=== PATIENT | female | born 1955 | race Caucasian/White ===

== ENCOUNTER 2018-03-22 07:30 | Inpatient (IN) ==
[~2018-03-22 07:30] MED LIST: ACETAMINOPHEN 500 MG TABLET PO ONE; FAMOTIDINE PB 20 MG/50 ML BAG IV ONE; HYDROCORTISONE SOD SUCC 100mg/2ml INJECTION IVP ONE; LIDOCAINE 1% (10mg/ml) 2mL INJ PF SDV ID ONE; MELOXICAM 15 MG TABLET PO ONE; METOCLOPRAMIDE 10mg/2ml INJECTION IVP ONE; ONDANSETRON 4 MG/2 ML INJECTION IVP ONE; TRANEXAMIC ACID 1,000 MG in NS 100 ML IV ONE
[2018-03-22] MEDS ORDERED: EPINEPHrine PF 0.25 MG, BUPIVACAINE 0.25% PF 30 ML, KETOROLAC INJ 60 MG in NS 30 ML OPSITE ONE (08:00)
--- OUTSIDE RECORDS SUMMARY | 2018-03-22 09:44 | External Medical Summary | Referral Summary ---
:1955 Author Organization [facility] Address [address] [place] [address] Care Team Providers Name Role Phone Joaquin Vásquez Primary Care Physician Erwin Buchanan Primary Care Physician Encounter VC Date(s): 03/06/18 - 03/06/18 [facility] [address] [place] [address]- [place] Discharge Disposition: 01-Home or Self Care Attending Physician: Ren Noel MD Admitting Physician: Ren Noel MD Problem List Condition Effective Dates Status Health Status Informant Acquired hallux rigidus of right Active foot(Confirmed) Acute sinusitis(Confirmed) Active Allergic rhinitis/Hayfever(Confirmed) Active Arthritis of ankle joint(Confirmed) Active Arthritis(Confirmed) Active Bronchitis(Confirmed) Active Chronic rhinitis (disorder)(Confirmed) Active Chronic sinusitis(Confirmed) Active Depression(Confirmed) Active Dermatofibroma(Confirmed) Active Rotator cuff tear - right, Active infraspinatus(Confirmed) Dyslipidemia(Confirmed) Active Onychodystrophy(Confirmed) Active Lower extremity edema(Confirmed) Active Essential hypertension Active (disorder)(Confirmed) Right foot pain(Confirmed) Active Herpes zoster(Confirmed) Active Hyperlipidemia(Confirmed) Active Inflammatory Active polyarthropathy(Confirmed) Insomnia(Confirmed) Active Primary osteoarthritis of left Active knee(Confirmed) Hot flashes(Confirmed) Active Obesity(Confirmed) Active patient Osteoarthritis - lower leg(Confirmed) Active Postherpetic neuralgia(Confirmed) Active Snoring(Confirmed) Active Urinary tract infection(Confirmed) Active Chickenpox(Confirmed) Active Allergies, Adverse Reactions, Alerts Substance Reaction Severity Status Enbrel Mild Active Medications acyclovir 800 mg oral tablet See Instructions, TAKE ONE TABLET BY MOUTH FIVE TIMES DAILY FOR 7 DAYS, # 35 tabs, eRx: [facility] #[id number], TAKE ONE TABLET BY MOUTH FIVE TIMES DAILY FOR 7 DAYS Start Date: 04/20/15 Status: OrderedAllegra See Instructions, as needed for allergy symptoms, Oral, 0 Refill(s) Start Date: 01/12/17 Status: Orderedatenolol 100 mg oral tablet 100 mg 1 tabs, Oral, Daily, # 90 tabs, 3 Refill(s), Pharmacy: [facility] # [id number], 1 tabs Oral Daily Start Date: 01/12/17 Status: OrderedClaritin See Instructions, as needed for allergy symptoms, mg, 0 Refill(s) Start Date: 01/12/17 Status: OrderedEstrace Vaginal 0.1 mg/g vaginal cream Vaginal, 3x/Wk, 0 Refill(s) Start Date: 06/15/15 Status: Orderedfenofibrate 160 mg oral tablet 160 mg 1 tabs, Oral, Daily, # 90 tabs, 3 Refill(s), Pharmacy: [facility] # [id number], 1 tabs Oral Daily Start Date: 09/08/16 Status: Orderedfolic acid 1 mg oral tablet 1 mg 1 tabs, Oral, Daily, 0 Refill(s) Start Date: 01/12/17 Status: OrderedhydroCHLOROthiazide 25 mg oral tablet 25 mg 1 tabs, Oral, Daily, # 90 tabs, 3 Refill(s), Pharmacy: [facility] # [id number], 1 tabs Oral Daily,x90 days Start Date: 02/19/18 Stop Date: 02/14/19 Status: Orderednabumetone 750 mg oral tablet 750 mg 1 tabs, Oral, BID, # 60 tabs, 0 Refill(s) Start Date: 08/17/16 Status: OrderedNorco 10 mg-325 mg oral tablet 1 tabs, Oral, QID, 0 Refill(s) Start Date: 06/15/15 Status: OrderedpredniSONE 10 mg oral tablet 10 mg 1 tabs, Oral, Daily, # 30 tabs, 0 Refill(s), other reason (Rx) Start Date: 01/12/17 Status: OrderedsulfaSALAzine 500 mg oral tablet 2 tabs, Oral, BID, # 120 tabs, 0 Refill(s) Start Date: 10/28/14 Status: OrderedTylenol Extra Strength 650 mg, Oral, q8hr, 0 Refill(s) Start Date: 04/30/14 Status: OrderedVascepa 1 g oral capsule 2 g 2 caps, Oral, BID, # 360 caps, 3 Refill(s), Pharmacy: [facility] # [id number], 2 caps Oral BID Start Date: 09/08/16 Status: Orderedvenlafaxine 150 mg oral capsule, extended release 150 mg 1 caps, Oral, Daily, # 90 caps, 3 Refill(s), Pharmacy: [facility] # [id number], 1 caps Oral Daily Start Date: 01/12/17 Status: Orderedzolpidem 5 mg oral tablet 7.5 mg 1.5 tabs, Oral, Bedtime (once a day), as needed for sleep, MUST LAST 30 DAYS - Horacio Rosen, # 45 Each, 0 Refill(s) Start Date: 08/18/17 Status: OrderedZyrTEC 5 mg, Daily, 0 Refill(s) Start Date: 10/28/14 Status: Ordered Immunizations Given and Recorded Vaccine Date Status Refusal Reason hepatitis A-hepatitis B vaccine1 08/14/17 Recorded influenza virus vaccine, inactivated2 09/04/15 Recorded influenza virus vaccine, inactivated 07/15/14 Recorded pneumococcal 23-polyvalent vaccine3 09/04/15 Recorded pneumococcal 13-valent conjugate vaccine 08/12/14 Recorded influenza virus vaccine, live 10/02/13 Given influenza virus vaccine, live 10/02/12 Given tetanus/diphth/pertuss (Tdap) adult/adol 08/01/12 Recorded tetanus/diphth/pertuss (Tdap) adult/adol 10/06/10 Recorded 1Location History: [facility]: [id number] History: [id number] History: Jessika Procedures Procedure Date Related Diagnosis Body Site Status Open reduction and internal fixation of 12/10/10 Completed fracture - left lateral malleolus Fracture care - left ankle lateral 12/07/10 Completed malleolus Arthroscopy of knee Completed H/O section x2 Completed H/O hernia repair - umbilical Completed H/O sinus surgery1 Completed H/O tubal ligation Completed Nasal septoplasty Completed Surgery: Removed end section of Completed tailbone [place] teeth extracted Completed 1Polyps removed Social History Social History Type Response Smoking Status Never smoker entered on: 04/30/14
--- OUTSIDE RECORDS SUMMARY | 2018-03-22 09:44 | External Medical Summary | Referral Summary ---
:1955 Author Organization [facility] Address [address] [place] [address] Care Team Providers Name Role Phone Joaquin Vásquez Primary Care Physician Erwin Bucahnan Primary Care Physician Encounter VC Date(s): 03/06/18 - 03/06/18 [facility] [address] [place] [address]- [place] Discharge Disposition: 01-Home or [...] FOR 7 DAYS, # 35 tabs, eRx: [facility] #[id number], TAKE ONE TABLET BY MOUTH FIVE TIMES DAILY FOR 7 DAYS Start Date: 04/20/15 Status: OrderedAllegra See Instructions, as needed for allergy symptoms, Oral, 0 Refill(s) Start Date: 01/12/17 Status: Orderedatenolol 100 mg oral tablet 100 mg 1 tabs, Oral, Daily, # 90 tabs, 3 Refill(s), Pharmacy: [facility] # [id number], 1 tabs Oral Daily Start Date: 01/12/17 Status: OrderedClaritin See Instructions, as needed for allergy symptoms, mg, 0 Refill(s) Start Date: 01/12/17 Status: OrderedEstrace Vaginal 0.1 mg/g vaginal cream Vaginal, 3x/Wk, 0 Refill(s) Start Date: 06/15/15 Status: Orderedfenofibrate 160 mg oral tablet 160 mg 1 tabs, Oral, Daily, # 90 tabs, 3 Refill(s), Pharmacy: [facility] # [id number], 1 tabs Oral Daily Start Date: 09/08/16 Status: Orderedfolic acid 1 mg oral tablet 1 mg 1 tabs, Oral, Daily, 0 Refill(s) Start Date: 01/12/17 Status: OrderedhydroCHLOROthiazide 25 mg oral tablet 25 mg 1 tabs, Oral, Daily, # 90 tabs, 3 Refill(s), Pharmacy: [facility] # [id number], 1 tabs Oral Daily,x90 days Start Date: [...] BID, # 360 caps, 3 Refill(s), Pharmacy: [facility] # [id number], 2 caps Oral BID Start Date: 09/08/16 Status: Orderedvenlafaxine 150 mg oral capsule, extended release 150 mg 1 caps, Oral, Daily, # 90 caps, 3 Refill(s), Pharmacy: [facility] # [id number], 1 caps Oral Daily Start Date: 01/12/17 [...] 10/06/10 Recorded 1Location History: [facility]: KATH [id number] History: [id number] History: Jessika Procedures Procedure Date Related Diagnosis [...] Surgery: Removed end section of Completed tailbone [place] teeth extracted Completed 1Polyps removed Social History Social History Type Response Smoking Status Never smoker entered on: 04/30/14
[2018-03-22 10:14] VITALS: BMI 34.6
[2018-03-22] MEDS: LR 1,000 ML IV SCH ×3 (10:15→15:25)
[2018-03-22] MEDS: NOZIN NASAL SWAB NAS SCH ×4 (10:30→21:07)
[2018-03-22] MEDS ORDERED: CEFAZOLIN 1 G INJECTION IVP ONE (10:31)
[2018-03-22] MEDS ORDERED: VANCOMYCIN 1,000 MG INJECTION ONE (11:23)
[2018-03-22] MEDS ORDERED: VANCOMYCIN 1,000 MG INJECTION IAR ONE (11:58)
[2018-03-22] MEDS ORDERED: MIDAZOLAM 2mg/2ml INJECTION ONE (12:00)
[2018-03-22] MEDS ORDERED: LIDOCAINE 2% (100mg/5mL) 5ml PF SDV ONE (12:01)
[2018-03-22] MEDS ORDERED: BUPIVACAINE 0.75%/DEXTROSE 8.5% SPINAL 2 ML AMPULE IJ ONE (12:01)
[2018-03-22] MEDS ORDERED: PROPOFOL 500 MG/50 ML VIAL ONE ×2 (12:13→13:48)
[2018-03-22] MEDS ORDERED: SALINE FLUSH 10ml SYRINGE ONE ×2 (12:53→13:02)
[2018-03-22] MEDS ORDERED: EPHEDRINE 50mg/ml INJECTION ONE (12:53)
[2018-03-22] MEDS ORDERED: PHENYLEPHRINE INJ 10 MG/ML VIAL IV ONE (13:02)
[2018-03-22] MEDS ORDERED: PROPOFOL 20 ML ONE ×3 (13:26→14:39)
[2018-03-22] MEDS ORDERED: ROPIVACAINE 0.5% (5mg/ml) 30ml INJ ONE (13:39)
[2018-03-22] MEDS ORDERED: LIDOCAINE 1% (10mg/ml) 30ml SDV INJ ONE (13:39)
[2018-03-22] MEDS ORDERED: FentaNYL 250 MCG/5 ML INJECTION ONE (13:47)
--- NOTE | 2018-03-22 14:34 | Operative Note ---
- Procedure Preoperative Diagnosis: Left knee primary degenerative joint disease Postoperative Diagnosis: Same as preoperative diagnosis. Surgeon: Melvin Rubalcava MD Rail Signal Mechanic: Meghana Anna Complications: Intraoperative medial condyle fracture repaired with screws. Anesthesia: Spinal. Estimated Blood Loss: See Anesthesia Record. Fluids: Please see Anesthesia Record. Description of Procedure: Mrs. Courtney and her left knee were identified and marked in the preoperative holding area. She was brought back to the operating suite. Spinal anesthetic was administered and she was placed supine on the operating table. The left lower extremity was prepped and draped in my normal sterile fashion. Timeout was performed. The [employer] robotic arm was used during the surgery. She has fixed varus deformity with a 10 flexion contracture. A standard anterior midline incision followed by medial parapatellar arthrotomy was performed. Anterior fat pad and meniscus were removed. The patella was everted and a patella osteotomy was performed leaving 12 mm of bone. She had complete loss of cartilage with eburnated bone medially. She had other changes the lateral medial compartment a lesser degree. There are large medial osteophytes. Tibial and femoral arrays and checkpoints were placed both within the original incision. The bone was then registered with the [employer] TV robot. The robot was utilized to cut a 1 varus cut on the tibia. There was also used to make a femoral cut in 0 with the mechanical axis taking 9.5 mm off the medial condyle. Then using manual [employer] instrumentation to set rotation at 3 in relation to the posterior condyles. This was pinned in place and the femur sized at a 3. The 4-in-1 cutting block was then utilized to finish the femoral cuts. At this point remaining osteophytes and meniscus were removed. Trial components were then placed. As the femoral component was placed a small avulsion fracture off the medial femoral condyle occurred. The fracture started just medial to the femoral component and ended approximately where the beginning of the MCL started. At this point I removed 2 more millimeters off the tibial cut and re-trialed. This felt good patella tracked well. The patella was resurfaced to size 29. With trial components were placed and then reduced the fractured medial condyle fragment and held in place with a bone clamp and placed 23.5 mm titanium screws with washers from medial to lateral. This held the fracture reduced well. Femoral slots were then punched. Tibial rotation was marked. The tibia was stamped for a size 3. The bone was prepared for cementing and components were then cemented into place. An Oxinium femur was used. After cement had cured the knee was again taken through range of motion she was nice and stable throughout range of motion and well balanced and the patella tracked well. Betadine solution was used throughout the case for irrigation. 1 g vancomycin powder was placed into the knee joint before the capsulotomy was repaired with #1 Vicryl. Subcutaneous tissues closed with 2-0 Vicryl. The skin was closed with 2-0 monoderm. Dermabond was then used on the skin. A sterile dressing was placed and the patient was taken back to recovery room in the care of anesthesia. She tolerated the procedure well.
[2018-03-22] MEDS ORDERED: SALINE FLUSH 10ml SYRINGE IV PRN (14:48)
--- NOTE | 2018-03-22 15:34 | Anesthesia Preoperative Report ---
Anesthesia Preoperative Record - Date and Time Date: 03/22/18 Preoperative Diagnosis: Lt TKA M17.12 NPO Since Date: 03/21/18 NPO Since Time: 23:00 Allergies/Adverse Reactions: Allergies Allergy/AdvReac Type Severity Reaction Status Date / Time etanercept [From Enbrel] Allergy Unknown itching, Verified 03/22/18 09:53 red spots nickel Allergy Unknown Hives Verified 03/22/18 09:53 - Vital Signs Vital Signs: Temperature 98.9 F 03/22/18 09:50 Pulse Rate 65 03/22/18 10:24 Respiratory Rate 21 03/22/18 10:24 Blood Pressure 157/69 H 03/22/18 10:24 Pulse Oximetry 98 03/22/18 09:50 Height and Weight: Height 5 ft 3.5 in Weight 90.1 kg Body Mass Index 34.6 - Medications Inpatient Medications: Current Medications Hydrocortisone Sodium Succinate (Solu-Cortef) 100 mg IVP O ONE Stop: 03/23/18 09:01 Lactated Ringer's (Lactated Ringers) 1,000 mls @ 50 mls/hr IV .Q20H LANIE Last Admin: 03/22/18 15:25 Dose: 50 mls/hr Epinephrine HCl 0.25 mg/Bupivacaine HCl 30 ml/Ketorolac Tromethamine 60 mg/ Sodium Chloride 62.25 mls @ 1 mls/hr OPSITE INTRAOP ONE PRN Reason: Protocol Stop: 03/24/18 22:14 Last Admin: 03/22/18 14:00 Dose: 1 mls/hr Sodium Chloride (Iv Flush) 10 - 80 ml IV PRN PRN PRN Reason: Flushing Home Medications: Home Medications Medication Instructions Recorded Confirmed Type Atenolol [Tenormin] 2 tab PO DAILY 02/12/18 03/22/18 History Fenofibrate [Lofibra] 160 mg PO DAILY 02/12/18 03/22/18 History Folic Acid [Folate] 1 tab PO DAILY 02/12/18 03/22/18 History Hydrocodone/Ibuprofen 1 tab PO Q5H PRN 02/12/18 03/22/18 History [Hydrocodone-Ibuprofen 10-200] Icosapent Ethyl [Vascepa] 2 gm PO BID 02/12/18 03/22/18 History Nabumetone [Relafen] 750 mg PO BID 02/12/18 03/22/18 History [place]-3 Acid Ethyl Esters 2 gm PO BID 02/12/18 03/22/18 History SulfaSALAzine [Azulfidine] 500 mg PO BID 02/12/18 03/22/18 History Venlafaxine HCl [Venlafaxine HCl 1 tab PO DAILY 02/12/18 03/22/18 History ER] Zolpidem [Ambien] 7.5 mg PO HS 02/12/18 03/22/18 History hydroCHLOROthiazide 50 mg PO DAILY 02/12/18 03/22/18 History [Hydrochlorothiazide] predniSONE [Prednisone] 10 mg PO DAILY 02/12/18 03/22/18 History - Medical History Respiratory: Reports: Bronchitis, Other (insomnia) DENIES: Sleep Apnea Cardiovascular: Reports: Hypertension, Other (mixed hyperlipidemia) DENIES: Angina Gastrointestional: DENIES: Gastroesophageal Reflux Disease Neuro/Musculoskeletal: Reports: Depression Other History: DENIES: Anesthesia Reactions - Surgical History HEENT Surgeries: Reports: Nose Surgery (polyps removed from nose) GI Surgery/Treatments: Reports: Hernia Repair (umbilical) Musculoskeletal Surgery/Tx: Reports: Knee Arthroscopy (left knee), Other (ORIF left ankle; right shoulder spur removal) Reproductive Surgery/Treatment: Reports: Section (x2), Hysterectomy, Other (uterine polyp removed) Anesthesia Reactions: None Hx Family Anesthesia Reaction: No History of Motion Sickness: No - Social History Smoking Status: Never smoker Hx Chewing Tobacco Use: No Second Hand Exposure: No Substance Use Type: does not use - Pertinent Findings EKG: Sinus Rhythm - Physical Exam Respiratory Exam: Present: lungs clear, bilateral breath sounds equal Cardiovascular Exam: Present: regular rate and rhythm - Airway Assessment Mallampati Score: II TMD: 3 Fingerbreadths Neck Extension: good Overall Assessment: no airway concerns - ASA ASA Score: 3 - Plan Anesthesia: General TIVA, Neuroaxial - Discussion Discussion: Discussed risks/options/alternatives of anesthesia and questions answered. Patient consents. Nursing pain assessment noted. Present for Discussion: spouse Attestation Statement: Prior to the delivery of any anesthetic medication, I examined the patient, developed the plan, obtained the patient's consent and discussed the risk and benefits of the procedure with the patient/guardian. - Additional Information Seen by Anesthesia: Yes
--- NOTE | 2018-03-22 15:34 | Anesthesia Postoperative Note ---
- Date and Time Date: 03/22/18 Time: 15:34 - Status Patient Participated in Evaluation: Patient Participated in Person Vital Signs: Temperature 98.0 F 03/22/18 15:12 Pulse Rate 74 03/22/18 15:12 Respiratory Rate 14 03/22/18 15:12 Blood Pressure 137/73 03/22/18 15:12 Pulse Oximetry 96 03/22/18 15:12 Respiratory Function: Airway Patent Cardiovascular Function: Regular Pulse EKG: Sinus Rhythm Mental Status: Alert and Oriented Pain Intensity: 0 (denies pain after adductor canal block) Hydration: IV Infusing Complications During Recover: None Apparent - Follow-Up Instructions Instructions: Per Surgeon
--- NOTE | 2018-03-22 15:36 | Anesthesia Procedure Note ---
Peripheral Nerve Blockade - Procedure Physician: Jack Rubalcava MD Date: 03/22/18 Discussion: Discussed risks/options/alternatives of anesthesia and questions answered. Patient consents. Nursing pain assessment noted. Block Start: 14:55 Block Stop: 15:00 Blocked Employed: Adductor Canal Approach: Left Side Confirmed Position: Supine Patient: Consent, Risks/Benefits Discussed, Informed, Post Block Act. Discussed IV Sedation: Yes (intraoperative- propofol infusion) Initial Vital Signs: Temperature 98.9 F 03/22/18 09:50 Temperature Source Oral 03/22/18 09:50 Pulse Rate 66 03/22/18 09:50 Respiratory Rate 16 03/22/18 09:50 Blood Pressure 191/92 H 03/22/18 09:50 Blood Pressure Mean 125 03/22/18 09:50 Pulse Oximetry 98 03/22/18 09:50 Oxygen Delivery Method 03/22/18 09:50 Post Vital Signs: Temperature 98.0 F 03/22/18 15:12 Pulse Rate 74 03/22/18 15:12 Respiratory Rate 14 03/22/18 15:12 Blood Pressure 137/73 03/22/18 15:12 Pulse Oximetry 96 03/22/18 15:12 Initial Pain Pain Score: 0 Post Block Pain Score: 0 Prep: Chlorhexadine/ETOH Ultrasound Used?: Yes - Injectate Ropivacaine (%): 0.5 Ropivacaine (mL): 15 Lidocaine (%): 1 Lidocaine (mL): 15 Was Epi 1:200,000 Used?: No Injection: Injection made incrementally with constant monitoring and negative aspiration every 5 ml
--- NOTE | 2018-03-22 15:46 | XRay Report ---
Indication: postoperative image PROCEDURE: XR knee LT 2V: Encounter: Initial Comparison: February 12, 2018 Findings: Postoperative changes of left total knee replacement are seen. There is expected postoperative subcutaneous gas. No evidence of hardware failure or acute fracture. No retained radiopaque surgical instruments or sponges. Overlying material causing artifact. Impression: New left total knee prosthesis without evidence of immediate complication. .
[2018-03-22] MEDS ORDERED: NOZIN NASAL SWAB NAS ONE (15:49)
[2018-03-22] MEDS ORDERED: LORazepam 1 MG TABLET PO PRN (15:49)
[2018-03-22] MEDS ORDERED: ONDANSETRON 4 MG/2 ML INJECTION IVP PRN (15:49)
[2018-03-22] MEDS ORDERED: DiphenhydrAMINE 25 MG CAPSULE PO PRN (15:49)
[2018-03-22] MEDS ORDERED: DiphenhydrAMINE 50 MG/ML INJECTION IVP PRN (15:49)
[2018-03-22] MEDS: NS 1,000 ML IV SCH (15:51)
[2018-03-22] MEDS ORDERED: FALL RISK - PHARMACY CONSULT MC ONE (16:01)
[2018-03-22] MEDS: ACETAMINOPHEN 325 MG TABLET PO SCH ×2 (16:31→21:07)
[2018-03-22] MEDS ORDERED: ICOSAPENT ETHYL 2 GM PO SCH (21:00)
[2018-03-22] MEDS ORDERED: ZOLPIDEM 5 MG TABLET PO SCH (21:00)
[2018-03-22] MEDS ORDERED: SENNOSIDES 8.6 MG TABLET PO SCH (21:00)
[2018-03-22] MEDS: CEFAZOLIN 2 G in NS 100 ML IV SCH (21:05)
[2018-03-22] MEDS: NABUMETONE 750 MG TABLET PO SCH (21:06)
[2018-03-22] MEDS: DOCUSATE SODIUM 100 MG CAPSULE PO SCH (21:07)
[2018-03-22] MEDS: ASPIRIN *EC* 81 MG TABLET PO SCH (21:07)
[2018-03-22] MEDS: Oxycodone *IR* 5 MG TABLET PO PRN (21:14)
[2018-03-23] MEDS: CEFAZOLIN 2 G in NS 100 ML IV SCH (03:44)
[2018-03-23] MEDS: Oxycodone *IR* 5 MG TABLET PO PRN ×4 (04:01→14:21)
[2018-03-23] MEDS: NS 1,000 ML IV SCH (04:02)
[2018-03-23] MEDS: NOZIN NASAL SWAB NAS SCH ×2 (05:57→14:24)
[2018-03-23] MEDS ORDERED: PredniSONE 10 MG TABLET PO SCH (08:00)
[2018-03-23] MEDS: NABUMETONE 750 MG TABLET PO SCH (08:33)
[2018-03-23] MEDS: DOCUSATE SODIUM 100 MG CAPSULE PO SCH (08:43)
[2018-03-23] MEDS: ASPIRIN *EC* 81 MG TABLET PO SCH (08:43)
[2018-03-23] MEDS: ACETAMINOPHEN 325 MG TABLET PO SCH ×2 (08:43→14:21)
--- NOTE | 2018-03-23 08:51 | Orthopedic Progress Note ---
Date: Date: 03/23/18 Time: 837 Subjective/Severity of Illness: Mrs. Courtney is up with OT to the bedside chair on morning rounds. States her pain had been well controlled until moving this morning. Last had Roxicodone 5mg at 0400. Rates pain 6 with movement. Has hinged knee brace in place while ambulating with the walker. She denies any CP, SOA, nausea. Hgb 11.9. Orthopedic Exam Vital signs: Temperature 97.8 F 03/23/18 04:00 Pulse Rate 75 03/23/18 04:00 Respiratory Rate 18 03/23/18 04:00 Blood Pressure 152/71 H 03/23/18 04:00 Pulse Oximetry 98 03/23/18 04:00 - Constitutional General Appearance: Present: alert, orientated x3, cooperative, well developed, well nourished - Respiratory Exam Present: CTA bilaterally, non-labored - Cardiovascular Exam Present: Regular Rate/Rhythm, pedal pulses intact - Extremities Exam Present: pulses intact. Absent: calf tenderness - Dressing Dressing: dry, intact, no drainage Comments: Mepilex dressing left knee - Integumentary Exam Present: pink, warm, dry - Neurological Exam Present: intact to light touch, no deficits - Psychiatric Exam Present: alert, oriented, normal affect - Labs Result Diagrams: 03/23/18 04:41 03/23/18 04:41 Abnormal lab results 03/23/18 03/23/18 Range/Units 04:41 04:41 Hgb 11.9 L (12-16) GM/DL Hct 35.3 L (36-46) % Chloride 97 L (98-107) MEQ/L Calculated Osmolality 260 L (261-280) MOSM/KG H & H 03/23/18 Range/Units 04:41 Hgb 11.9 L (12-16) GM/DL Hct 35.3 L (36-46) % Orthopedic Assessment and Plan (1) Primary osteoarthritis of left knee Status: Acute Assessment and Plan: Patient underwent Left TKA by Dr. Rubalcava yesterday, intraop patient had medial condyle fracture repaired with screws. Placed in hinge knee brace, flexion to 90 degrees. Ambulate with walker for 6 weeks for added protection. Current anti-coagulation protocol with ASA 81mg BID x 6 weeks for VTE prophylaxis. SCD's for added protection. PT/OT services to improve independent function. Discharge Planning per Case Management. RA- solucortef 100mg IV post op day 1 per Mechanical Maintenance Technician request, home meds restarted. - Anticoagulation Therapy Anticoagulation: ASA 81 mg PO BID x6 weeks - Additional Diagnoses Hypertension: stable, resume medications Anemia: no intervention required, patient was asymptomatic, labs monitored Hospital Course Summary Disclaimer: The visit summary below is not to be considered part of the above Progress Note.
[2018-03-23] MEDS ORDERED: FENOFIBRATE 160 MG TABLET PO SCH (09:00)
[2018-03-23] MEDS ORDERED: POLYETHYL GLYCOL 3350 17gm PACKET PO SCH (09:00)
[2018-03-23] MEDS ORDERED: FOLIC ACID 1 MG TABLET PO SCH (09:00)
[2018-03-23] MEDS ORDERED: HYDROCORTISONE SOD SUCC 100mg/2ml INJECTION IVP ONE (09:00)
[2018-03-23] MEDS ORDERED: ATENOLOL 100 MG TABLET PO SCH (09:00)
--- NOTE | 2018-03-23 09:25 | Discharge Summary ---
Orthopedic Discharge Info Date of admission: 03/22/18 09:33 Anticipated date of discharge: 03/23/18 Primary care physician: Joaquin Vásquez MD Attending Physician: Jack Rubalcava MD Consults: 03/22/18 09:40 Consult to Anesthesiology [CONS] Routine Reason For Exam: Preoperative Assessment 03/22/18 15:49 Case Management Consult [CONS] Routine Reason For Exam: Discharge Planning DME-Walker [CONS] Routine Height: 5 ft 3.5 in Weight: 90.1 kg Total Joint Outpatient Therapy [CONS] Routine Comment: Remove dressing in 2 weeks - Discharge Diagnosis (1) Primary osteoarthritis of left knee Status: Acute - Laboratory Result Diagrams: 03/23/18 04:41 03/23/18 04:41 Laboratory: Abnormal lab results 03/23/18 03/23/18 Range/Units 04:41 04:41 Hgb 11.9 L (12-16) GM/DL Hct 35.3 L (36-46) % Chloride 97 L (98-107) MEQ/L Calculated Osmolality 260 L (261-280) MOSM/KG H & H 03/23/18 Range/Units 04:41 Hgb 11.9 L (12-16) GM/DL Hct 35.3 L (36-46) % Orthopedic Discharge HPI - HPI Comments This patient was admitted for elective surgical tx of end stage degenerative joint disease that failed to respond to conservative treatment. Further details of this is found in the admission H&P. Orthopedic Hospital Course Hospital course: 03/23/18 09:21 After appropriate preoperative clearance and signing of operative consent, the patient was given IV antibiotics, according to orthopedic protocol. The patient was taken to the operating room and underwent elective left total knee arthroplasty, intraoperatively she sustained avulsion fracture of medial condyle which was repaired with screws. Patient was placed in hinged knee brace locked to flexion of 90 degrees. Instructed to ambulate with walker for 6 weeks for added protection. Following surgery, antibiotics were discontinued less than 24 hours according to joint protocol. Appropriate anticoagulants were initiated with ASA 81mg BID x 6 weeks and SCDs added for DVT prevention. The dressing was clean, dry, and intact. Pain control was obtained via multimodal approach. Bowel motivation addressed with scheduled and PRN medications. Early mobilization was initiated through PT services. Discharge arrangements made by a collaborative effort between the patient and Case Management. Wasd discharged with Home Health/PT with plans to transition outpatient. HTN- home medications were restarted. SBP 140-150s. RA- Solu-cortef 100mg IV pre-op and post op day 1 per [employer] request. Home meds restarted. Anemia- stable, hgb 11.9. No intervention required. Follow up with PCP in 1 week for follow of of HTN and medical check. Follow-up is scheduled in 2-3 weeks. Discharge instructions given by orthopedic providers and nursing staff at discharge. Discharge condition was good. 03/23/18 12:51 Care extended to > 2 midnight stays?: No Discharge Plan - Med Rec/Dispo Referrals/Follow Up: Meghana Anna APRN [Advanced Practice Nurse] - 04/18/18 10:30 am Joaquin Vásquez MD [Primary Care Provider] - 1 Week [place] Instructions: [facility] Postop Instructions Additional Instructions: [facility] [place] ON 03/27/2018 AT 2:30PM FOR PHYSICAL THERAPY EVAL. PHONE [phone] Prescriptions: New Aspirin *EC* [Ecotrin] 81 mg PO BID tab Acetaminophen [Tylenol] 650 mg PO QID tab Docusate Sodium [Colace] 100 mg PO BID cap PEG 3350 17gm PACKET [Miralax] 17 gm PO DAILY packet Oxycodone *IR* [Roxicodone *Ir*] 5 - 15 mg PO Q3H PRN #60 tab PRN Reason: Breakthrough Pain Milk of Magnesia [Mom] 30 ml PO DAILY udc Continue [place]-3 Acid Ethyl Esters 2 gm PO BID Icosapent Ethyl [Vascepa] 2 gm PO BID Zolpidem [Ambien] 7.5 mg PO HS Folic Acid [Folate] 1 tab PO DAILY Fenofibrate [Lofibra] 160 mg PO DAILY Venlafaxine HCl [Venlafaxine HCl ER] 150 mg PO DAILY hydroCHLOROthiazide [Hydrochlorothiazide] 50 mg PO DAILY predniSONE [Prednisone] 10 mg PO DAILY SulfaSALAzine [Azulfidine] 500 mg PO BID Nabumetone [Relafen] 750 mg PO BID Atenolol [Tenormin] 2 tab PO DAILY No Action Hydrocodone/Ibuprofen [Hydrocodone-Ibuprofen 10-200] 1 tab PO Q5H PRN PRN Reason: Pain - Disposition 01 Discharged Home, Self-Care - Dismissal Complete Discharge Instructions are:: Complete
--- NOTE | 2018-03-23 11:16 | XRay Report ---
Indication: Knee surgery PROCEDURE: XR knee LT 2V: Encounter: Initial Comparison: March 22, 2018 Findings/ Impression: Unchanged appearance of the left total knee prosthesis. No acute fracture. Overlying material causing artifact. .
[2018-03-23 12:41] VITALS: BP 159/77; PULSE 76; RESP 16; TEMP 98.3; O2SAT 96
[2018-03-23] MEDS ORDERED: SENNOSIDES 8.6 MG TABLET PO PRN (14:50)
[2018-03-24] MEDS ORDERED: BISACODYL 10 MG SUPPOSITORY RECTALLY SCH (20:00)
== END 2018-03-23 15:30 | disposition home health service (06) | DRG 470 ==
LOC: NMC.PERIOP 09:33 → SRG 15:42
PROVIDERS: ADMIT Orthopaedic Surgery; ATTEND Orthopaedic Surgery